=== PATIENT | female | born 1980 | race Caucasian/White ===

== ENCOUNTER 2016-05-09 15:44 | Emergency (ER) | payer OTHER ==
[~2016-05-09] VITALS: Ht 149.9 cm; Wt 54.5 kg
[2016-05-09 15:45] VITALS: BP 118/57; PULSE 92; RESP 16; TEMP 98; O2SAT 96
[2016-05-09] MEDS ORDERED: BUSP15TA PO (15:58)
[2016-05-09] MEDS ORDERED: TRAZ100T5 PO (15:58)
[2016-05-09] MEDS ORDERED: LEVO75TA3 PO (15:58)
[2016-05-09] MEDS ORDERED: METH10TA PO (15:58)
[2016-05-09] MEDS ORDERED: CYMB60CA PO (15:58)
[2016-05-09] MEDS ORDERED: SODIUM CHLORIDE 0.9% FLUSH 5 ML FLUSH IVF PRN (16:00)
[2016-05-09] MEDS ORDERED: SODIUM CHLOR 0.9% 1000 ML INJ 1,000 ML IV SCH (16:00)
[2016-05-09] MEDS ORDERED: ONDANSETRON HCL 4 MG/2 ML VIAL IVP ONE (16:00)
[2016-05-09] MEDS ORDERED: KETOROLAC TROMETHAMINE 30 MG/ML (IVP) VIAL IV PUSH ONE (16:15)
--- NOTE | 2016-05-09 16:41 | PD ---
HPI Chief Complaint: Abdominal Pain Time Seen by Provider: 16:12 Travel History International Travel<30 days: No Contact w/Intl Traveler<30days: No Traveled to known affect area: No History of Present Illness HPI 35-year-old female with history of tubal ligation, opiate dependence currently on methadone, presents to the ER today because she states that she has had 2 days history of right sided abdominal pain with radiation to the right flank area. She states that the pain has been constant, 8 out of 10, has started at night and woke her up. She has been nauseous, vomiting, and has been diaphoretic according to . She states that she initially thought it was constipation and had taken stool softer nurse and is now having diarrhea. She does not know any exacerbating or alleviating factors. Modifying Factors: None Associated Signs & Symptoms: Nausea, vomiting, diarrhea, right sided abdominal pain and flank pain Risk Factors: None PFSH Past Medical History Asthma: Yes Depression: Yes Medical other: Yes (hypothyroid) ?: Not LMP: 04/21/16 Past Surgical History Section: Yes Social History Alcohol Use: No Tobacco Use: No Substance Use: No Allergies-Medications (Allergen,Severity, Reaction): Coded Allergies: Sulfa (Verified Allergy, Severe, Rash, 05/09/16) Reported Meds & Prescriptions Reported Meds & Active Scripts Active Zofran Odt (Ondansetron Odt) 4 Mg Tab 4 Mg SL Q6HR PRN Keflex (Cephalexin) 500 Mg Cap 500 Mg PO Q6H 7 Days Motrin Ib (Ibuprofen) 200 Mg Tab 600 Mg PO Q6H PRN Reported Methadone (Methadone HCl) 10 Mg Tab 90 Mg PO DAILY Levothyroxine (Levothyroxine Sodium) 75 Mcg Tab 75 Mcg PO DAILY Trazodone HCl 100 Mg Tab 1 Tab PO DAILY Buspirone (Buspirone HCl) 15 Mg Tab 15 Mg PO TID Cymbalta DR (Duloxetine HCl) 60 Mg Capdr 60 Mg PO DAILY Review of Systems Except as stated in HPI: all other systems reviewed are Neg Physical Exam Narrative GENERAL: Well-nourished, well-developed young white female patient in mild distress. SKIN: Warm and diaphoretic. HEAD: Normocephalic. EYES: No scleral icterus. No injection or drainage. NECK: Supple, trachea midline. CARDIOVASCULAR: Regular rate and rhythm without murmurs, gallops, or rubs. RESPIRATORY: Breath sounds equal bilaterally. No accessory muscle use. GASTROINTESTINAL: Abdomen soft, right lower quadrant tenderness and guarding, no rebound, nondistended. MUSCULOSKELETAL: No cyanosis, or edema. BACK: Nontender without obvious deformity. No CVA tenderness. NEUROLOGICAL: Awake and alert. Cranial nerves II through XII intact. Motor and sensory grossly within normal limits. Five out of 5 muscle strength in all muscle groups. Normal speech. Data Data Last Documented VS Vital Signs Date Time Temp Pulse Resp B/P Pulse Ox O2 Delivery O2 Flow Rate FiO2 05/09/16 15:45 98.0 92 16 118/57 96 Room Air Orders Complete Blood Count With Diff (05/09/16 16:00) Comprehensive Metabolic Panel (05/09/16 16:00) Lipase (05/09/16 16:00) Urinalysis - C+S If Indicated (05/09/16 16:00) Iv Access Insert/Monitor (05/09/16 16:00) Ecg Monitoring (05/09/16 16:00) Oximetry (05/09/16 16:00) Ondansetron Inj (Zofran Inj) (05/09/16 16:00) Sodium Chlor 0.9% 1000 Ml Inj (Ns 1000 M (05/09/16 16:00) Sodium Chloride 0.9% Flush (Ns Flush) (05/09/16 16:00) Ed Urine Pregnancytest Poc (05/09/16 16:00) Ketorolac Inj (Toradol Inj) (05/09/16 16:15) Ct Abd/Pel W Iv Contrast(Rout) (05/09/16 16:12) Vascular Poc Ultrasound (05/09/16 ) Consult Vascular Access Team (05/09/16 ) Ns + Kcl 20 Meq Inj (Ns + Kcl 20 Meq Inj (05/09/16 17:15) Urine Culture (05/09/16 16:43) Iohexol 350 Inj (Omnipaque 350 Inj) (05/09/16 18:10) Lactic Acid Sepsis Protocol (05/09/16 18:42) Blood Culture (05/09/16 18:42) Cefepime Inj (Maxipime Inj) (05/09/16 18:42) Labs Laboratory Tests Test 2/12/17 2/12/17 16:23 16:43 White Blood Count 17.2 TH/MM3 Red Blood Count 5.34 MIL/MM3 Hemoglobin 14.6 GM/DL Hematocrit 43.7 % Mean Corpuscular Volume 81.8 FL Mean Corpuscular Hemoglobin 27.3 PG Mean Corpuscular Hemoglobin 33.4 % Concent Red Cell Distribution Width 14.4 % Platelet Count 316 TH/MM3 Mean Platelet Volume 8.2 FL Neutrophils (%) (Auto) 81.4 % Lymphocytes (%) (Auto) 11.3 % Monocytes (%) (Auto) 7.1 % Eosinophils (%) (Auto) 0.1 % Basophils (%) (Auto) 0.1 % Neutrophils # (Auto) 14.0 TH/MM3 Lymphocytes # (Auto) 1.9 TH/MM3 Monocytes # (Auto) 1.2 TH/MM3 Eosinophils # (Auto) 0.0 TH/MM3 Basophils # (Auto) 0.0 TH/MM3 CBC Comment DIFF FINAL Differential Comment Sodium Level 132 MEQ/L Potassium Level 3.0 MEQ/L Chloride Level 96 MEQ/L Carbon Dioxide Level 26.5 MEQ/L Anion Gap 10 MEQ/L Blood Urea Nitrogen 10 MG/DL Creatinine 0.88 MG/DL Estimat Glomerular Filtration 74 ML/MIN Rate Random Glucose 103 MG/DL Calcium Level 9.2 MG/DL Total Bilirubin 1.5 MG/DL Aspartate Amino Transf 16 U/L (AST/SGOT) Alanine Aminotransferase 23 U/L (ALT/SGPT) Alkaline Phosphatase 74 U/L Total Protein 9.0 GM/DL Albumin 3.9 GM/DL Lipase 56 U/L Urine Color YELLOW Urine Turbidity HAZY Urine pH 6.0 Urine Specific [place] 1.020 Urine Protein 30 mg/dL Urine Glucose (UA) NEG mg/dL Urine Ketones 40 mg/dL Urine Occult Blood SMALL Urine Nitrite POS Urine Bilirubin NEG Urine Urobilinogen LESS THAN 2.0 MG/DL Urine Leukocyte Esterase LARGE Urine RBC 10 /hpf Urine WBC /hpf Urine WBC Clumps MANY Urine Squamous Epithelial 9 /hpf Cells Urine Bacteria OCC /hpf Urine Hyaline Casts 4 /lpf Urine Mucus MANY /lpf Microscopic Urinalysis Comment CULTURE INDICATED MDM Medical Decision Making Medical Screen Exam Complete: Yes Emergency Medical Condition: Yes Medical Record Reviewed: Yes Interpretation(s) Laboratory Tests Test 05/09/16 05/09/16 16:23 16:43 White Blood Count 17.2 TH/MM3 (4.0-11.0) Red Blood Count 5.34 MIL/MM3 (4.00-5.30) Neutrophils (%) (Auto) 81.4 % (16.0-70.0) Neutrophils # (Auto) 14.0 TH/MM3 (1.8-7.7) Monocytes # (Auto) 1.2 TH/MM3 (0-0.9) Sodium Level 132 MEQ/L (136-145) Potassium Level 3.0 MEQ/L (3.5-5.1) Chloride Level 96 MEQ/L (98-107) Estimat Glomerular Filtration 74 ML/MIN (>89) Rate Total Bilirubin 1.5 MG/DL (0.2-1.0) Total Protein 9.0 GM/DL (6.4-8.2) Lipase 56 U/L (73-393) Urine Turbidity HAZY (CLEAR) Urine Protein 30 mg/dL (NEG-TRACE) Urine Ketones 40 mg/dL (NEG) Urine Occult Blood SMALL (NEG) Urine Nitrite POS (NEG) Urine Leukocyte Esterase LARGE (NEG) Urine RBC 10 /hpf (0-3) Urine WBC Clumps MANY (NONE) Urine Bacteria OCC /hpf (NONE) Urine Mucus MANY /lpf (OCC) Differential Diagnosis Right sided abdominal pain, nausea, vomiting, diarrhea, right flank pain pyelonephritis versus renal colic versus appendicitis versus diverticulitis versus opiate withdrawal Narrative Course Lab work shows significant leukocytosis and significant UTI. CAT scan shows signs of right sided pyelonephritis. At this point, IV fluids and IV antibiotics had been given to the patient after cultures were drawn. Vital signs are stable in the ER. My plan would be to release her with follow-up to primary care physician. We will give her antibiotic treatment for pyelonephritis. Return for any worsening in fevers, or new symptoms as needed. The plan has been discussed with her and she states understanding. Diagnosis Primary Impression: ACUTE PYELONEPHRITIS Additional Impression: HYPOKALEMIA Med/Other Pt SpecificInfo: Prescription(s) given Scripts Potassium Bicarbonate Effervescent (K-Prime)25 Meq Tab25 Meq PO DAILY #5 TAB Ref 0 Prov:Alysia Winchester MD 05/09/16 Ondansetron Odt (Zofran Odt)4 Mg Tab4 Mg SL Q6HR PRN (Nausea/Vomiting) #7 TAB Ref 0 Prov:Alysia Winchester MD 05/09/16 Cephalexin (Keflex)500 Mg [id number] Mg PO Q6H 7 Days Ref 0 Prov:Alysia Winchester MD 05/09/16 Ibuprofen (Motrin Ib)200 Mg [id number] Mg PO Q6H PRN (PAIN SCALE 1 TO 10) #30 TAB Ref 0 Prov:Alysia Winchester MD 05/09/16 Disposition: 01 DISCHARGE HOME Condition: Stable Alysia Winchester MD May 09, 2016 16:41
[2016-05-09 16:50] LABS: BASOPHIL % 0.1 % (0.0-2.0); EOSINOPHIL % 0.1 % (0.0-4.0); HEMATOCRIT 43.7 % (35.0-46.0); HEMO FLAGS DIFF FINAL; LYMPH % 11.3 % (9.0-44.0); LYMPHOCYTE # 1.9 TH/MM3 (1.0-4.8); MEAN CELL VOLUME 81.8 FL (80.0-100.0); MEAN CORPUSCULAR HEMOGLOBIN 27.3 PG (27.0-34.0); MEAN CORPUSCULAR HGB CONC 33.4 % (32.0-36.0); MONO % 7.1 % (0.0-8.0); NEUT % 81.4 % (16.0-70.0); PLATELET COUNT 316 TH/MM3 (150-450); RED BLOOD COUNT 5.34 MIL/MM3 (4.00-5.30); RED CELL DISTRIBUTION WIDTH 14.4 % (11.6-17.2); WHITE BLOOD COUNT 17.2 TH/MM3 (4.0-11.0)
[2016-05-09 17:08] LABS: ALT (GPT) 23 U/L (10-53); ANION GAP 10 MEQ/L (5-15); AST (GOT) 16 U/L (15-37); BICARBONATE 26.5 MEQ/L (21.0-32.0); BLOOD UREA NITROGEN 10 MG/DL (7-18); CHLORIDE 96 MEQ/L (98-107); GLOMERULAR FILTRATION RATE 74 ML/MIN (>89); SODIUM (NA) 132 MEQ/L (136-145)
[2016-05-09 17:10] LABS: ALKALINE PHOSPHATASE 74 U/L (45-117); TOTAL BILIRUBIN ADULT 1.5 MG/DL (0.2-1.0)
[2016-05-09] MEDS ORDERED: NS + KCL 20 MEQ INJ 1,000 ML IV ONE (17:15)
[2016-05-09 17:19] LABS: BACTERIA, URINE OCC /hpf; BLOOD, URINE SMALL (NEG); COMMENT (UR) CULTURE INDICATED; CULTURE IF INDICATED CULTURE INDICATED; GLUCOSE,URINE NEG (NEG); HYALINE CAST, URINE 4 /lpf (RARE); KETONE, URINE 40 mg/dL (NEG); MUCUS URINE MANY /lpf (OCC); NITRITE,URINE POS (NEG); SQUAMOUS EPITHELIAL CELL URINE 9 /hpf (0-5); URINE COLOR YELLOW (YELLW/STRAW)
[2016-05-09] MEDS ORDERED: IOHEXOL 350 MG/ML 10 ML VIAL (for RAD DIAG) IV ONE (18:10)
[2016-05-09] MEDS ORDERED: CEFEPIME INJ 2,000 MG in SODIUM CHLORIDE 0.9% INJ 100 ML IV STA (18:42)
--- NOTE | 2016-05-09 18:54 | RADRPT ---
EXAM DATE/TIME: 05/09/2016 18:04 [facility] COMPARISON: No previous studies available for comparison. INDICATIONS : Right lower quadrant pain X 2 days. IV CONTRAST: 76 cc Omnipaque 350 (iohexol) IV ORAL CONTRAST: No oral contrast ingested. RADIATION DOSE: 4.60 CTDIvol (mGy) MEDICAL HISTORY : None SURGICAL HISTORY : None. ENCOUNTER: Initial ACUITY: 1 day PAIN SCALE: 7/10 LOCATION: Right lower quadrant TECHNIQUE: Volumetric scanning of the abdomen and pelvis was performed. Using automated exposure control and ad justment of the mA and/or kV according to patient size, radiation dose was kept as low as reasonably achievable to obtain optimal diagnostic quality images. FINDINGS: Lung bases are clear. No acute findings in the liver, spleen, adrenals, left kidney or pancreas. Ther e are patchy perfusion defects in the right kidney. Findings are nonspecific but a pyelonephritis cou ld give this appearance. There is also mild stranding in the perinephric fat on the right. No pelvic masses. No free fluid. No hydronephrosis. No bowel obstruction. No free air. Mild prominenc e of intrahepatic ductal system. CONCLUSION: 1. Patchy perfusion defects in the right kidney with some right perinephric stranding. Findings are m ost characteristic of a pyelonephritis. There is no hydronephrosis or definite evidence for obstructi ve uropathy although the right renal collecting system is slightly larger than on the left side. Ther e is no bowel obstruction, free fluid or free air. There is a minimal prominence of the intrahepatic biliary ductal system. Bennett Eaton MD on May 09, 2016 at 18:48 Board Certified Radiologist. This report was verified electronically.
[2016-05-09] MEDS ORDERED: ZOFR4TAB3 SL (18:58)
[2016-05-09] MEDS ORDERED: CEPH-460 PO (18:58)
[2016-05-09] MEDS ORDERED: MOTR200T4 PO (18:58)
[2016-05-09] MEDS ORDERED: [UNRECOGNIZED DRUG - CODE] PO (19:15)
[2016-05-09 20:02] VITALS: BP 120/64
== END 2016-05-09 20:03 | disposition home or self-care (01) ==
LOC: NEPA 15:44
DX: N12 Tubulo-interstitial nephritis, not specified as acute or chronic (principal); N39.0 Urinary tract infection, site not specified; F11.20 Opioid dependence, uncomplicated; J45.909 Unspecified asthma, uncomplicated; F41.9 Anxiety disorder, unspecified; E03.9 Hypothyroidism, unspecified; D72.829 Elevated white blood cell count, unspecified; B96.29 Other Escherichia coli [E. coli] as the cause of diseases classified elsewhere
CPT/HCPCS: 74177; 80053; 81001; 83605; 83690; 84703; 85025; 87040; 87077; 87086; 87186; 96361; 96365; 96375; 99284; J0692; J1885; J2405; J3480; J7030; Q9967; 76937

== ENCOUNTER 2016-07-29 18:37 | Emergency (ER) | payer OTHER ==
[~2016-07-29] VITALS: Ht 149.9 cm; Wt 61.0 kg
[~2016-07-29 18:37] MED LIST: BUSP15TA PO; CEPH-460 PO; CYMB60CA PO; LEVO75TA3 PO; METH10TA PO; MOTR200T4 PO; TRAZ100T5 PO; ZOFR4TAB3 SL; [UNRECOGNIZED DRUG - CODE] PO
[2016-07-29 18:39] VITALS: BP 123/84; PULSE 78; RESP 15; TEMP 98.2; O2SAT 99
[2016-07-29] MEDS ORDERED: KETOROLAC TROMETHAMINE 60 MG/2 ML (IM) VIAL IM ONE (19:15)
[2016-07-29] MEDS ORDERED: ORPHENADRINE INJ 60 MG/2 ML AMP IM ONE (19:15)
[2016-07-29] MEDS ORDERED: IBUP-232 PO (19:16)
[2016-07-29] MEDS ORDERED: ROBA500T PO (19:16)
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
== END 2016-07-29 20:01 | disposition home or self-care (01) ==
LOC: NEPK 18:37
DX: S39.012A Strain of muscle, fascia and tendon of lower back, initial encounter (principal); M62.838 Other muscle spasm; J45.909 Unspecified asthma, uncomplicated; V43.62XA Car passenger injured in collision with other type car in traffic accident, initial encounter; Y93.89 Activity, other specified; Y92.410 Unspecified street and highway as the place of occurrence of the external cause; Y99.8 Other external cause status
CPT/HCPCS: 96372; 99283; J1885; J2360

== ENCOUNTER 2016-08-02 20:50 | Emergency (ER) | payer OTHER ==
[~2016-08-02] VITALS: Ht 170.2 cm; Wt 75.0 kg
[~2016-08-02 20:50] MED LIST changes: +IBUP-232 PO; +ROBA500T PO
[2016-08-02 20:52] VITALS: BP 96/50; PULSE 79; RESP 16; TEMP 98; O2SAT 97
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
[2016-08-02] MEDS ORDERED: CYCLOBENZAPRINE HCL 10 MG TAB PO ONE (22:45)
[2016-08-02] MEDS ORDERED: NAPR500T PO (22:46)
== END 2016-08-02 23:26 | disposition home or self-care (01) ==
LOC: NEPK 20:50
DX: S39.012A Strain of muscle, fascia and tendon of lower back, initial encounter (principal); J45.909 Unspecified asthma, uncomplicated; F32.9 Major depressive disorder, single episode, unspecified
CPT/HCPCS: 72100; 84703; 99283